=== PATIENT | male | born 1945 | race Caucasian/White ===

== ENCOUNTER 2017-01-14 00:28 | Inpatient (IN) | payer MEDICARE, MEDICAID ==
[~2017-01-14] VITALS: Ht 185.4 cm; Wt 82.7 kg
[~2017-01-14 00:28] MED LIST: ACET-2247 PO; ADV250 IH; ARIP10TA14 PO; AUD NEB; BACL10TA PO; BENA20 PO; CEFX1I IV; DICY20 PO; FINA5TAB41 PO; GABA-529 PO; HEP5KI SQ; IPRNEB NEB; LORA10TA7 PO; PANT40TA25 PO; PARO20TA24 PO; PRED20 PO; PROPYLTHIOURACIL PO; TAMS0.4C32 PO
[2017-01-14 01:21] LABS: BASOPHILS # (AUTO) 0.04 K/uL (0.00-0.20); BASOPHILS % (AUTO) 0.5 % (0.0-2.0); EOSINOPHILS # (AUTO) 0.77 K/uL (0.00-0.70); EOSINOPHILS % (AUTO) 10.09 % (1.0-6.0); HEMATOCRIT 39.9 % (41-53); HEMOGLOBIN 13.4 g/dL (13.5-17.5); LYMPHOCYTES # (AUTO) 1.9 K/uL (1.0-4.8); LYMPHOCYTES % (AUTO) 25.3 % (22.0-44.0); MEAN CORPUSCULAR HEMOGLOBIN 30.8 pg (26.0-34.0); MEAN CORPUSCULAR HGB CONC 33.5 G/dL (31.0-37.0); MEAN CORPUSCULAR VOLUME 92 fL (80-100); MONOCYTES # (AUTO) 0.5 K/uL (0.1-1.0); MONOCYTES % (AUTO) 6.9 % (2.0-9.0); NEUTROPHILS # (AUTO) 4.4 K/uL (1.8-7.7); NEUTROPHILS % (AUTO) 57.2 % (40.0-70.0); PLATELET COUNT (AUTO) 202 K/uL (150-450); RED BLOOD CELL COUNT(AUTO) 4.34 MIL/uL (4.50-5.90); RED CELL DISTRIBUTION WIDTH 14.6 % (11.5-14.5); WHITE BLOOD COUNT (AUTO) 7.6 K/uL (4.5-11.0)
[2017-01-14 01:31] LABS: ANION GAP 11 mmol/L (8-16); CALCIUM, TOTAL 8.5 mg/dL (8.8-10.5); CARBON DIOXIDE 24 mmol/L (22-29); CHLORIDE 109 mmol/L (98-107); CREATININE 1.86 mg/dL (0.60-1.30); GLOMERULAR FILTR. RATE CALC 36 mL/min (>60); POTASSIUM 3.8 mmol/L (3.5-5.1); SODIUM SERUM 144 mmol/L (136-145); UREA NITROGEN, BLOOD 22 mg/dL (7-18)
[2017-01-14 01:35] LABS: ALANINE AMINOTRANSFERASE 21 U/L (12-78); ALBUMIN 3.5 g/dL (3.4-5.0); ASPARTATE AMINOTRANSFERASE 11 U/L (15-37); BILIRUBIN,TOTAL 0.4 mg/dL (0.1-1.0); TOTAL PROTEIN, SERUM 6.5 g/dL (6.4-8.2)
[2017-01-14] MEDS ORDERED: ACETAMINOPHEN 325 MG TABLET PO ONE (01:45)
[2017-01-14] MEDS ORDERED: LACT1CAP62 PO (02:05)
[2017-01-14] MEDS ORDERED: IBUP-1547 PO (02:05)
[2017-01-14] MEDS ORDERED: IBUPROFEN 800 MG TABLET PO ONE (02:30)
[2017-01-14] MEDS ORDERED: ONDANSETRON HCL 4 MG/2 ML VIAL IVP PRN ×2 (04:30→06:30)
[2017-01-14] MEDS ORDERED: 0.9% SODIUM CHLORIDE 10 ML SYRINGE IVP PRN (04:30)
[2017-01-14] MEDS ORDERED: ACETAMINOPHEN 325 MG TABLET PO PRN (04:30)
[2017-01-14] MEDS ORDERED: MAGNESIUM HYDROXIDE SUSPENSION 30 ML UDCUP PO PRN (06:30)
[2017-01-14] MEDS ORDERED: ZOLPIDEM TARTRATE 5 MG TABLET PO PRN (06:30)
[2017-01-14] MEDS ORDERED: IBUPROFEN 800 MG TABLET PO PRN (06:30)
[2017-01-14] MEDS ORDERED: ALBUTEROL SULFATE 2.5 MG/0.5 ML NEB SOLUTION NEB PRN (06:30)
[2017-01-14] MEDS ORDERED: IPRATROPIUM BROMIDE 0.5 MG/2.5 ML NEB SOLUTION NEB PRN (06:30)
[2017-01-14] MEDS ORDERED: BISACODYL 10 MG RECTAL RECTAL SUPPOSITORY PR PRN (06:30)
[2017-01-14 09:09] VITALS: BP 105/56
[2017-01-14] MEDS: HEPARIN SODIUM,PORCINE 5,000 UNITS/ML VIAL SQ SCH ×2 (10:30→20:07)
[2017-01-14] MEDS: PANTOPRAZOLE SODIUM 40 MG DR TABLET PO SCH (10:30)
[2017-01-14] MEDS: TAMSULOSIN HCL 0.4 MG CAPSULE PO SCH (10:30)
[2017-01-14] MEDS: ARIPiprazole 10 MG TABLET PO SCH (10:30)
[2017-01-14] MEDS: FINASTERIDE 5 MG TABLET PO SCH (11:39)
[2017-01-14 13:06] VITALS: BP 118/82
[2017-01-14 16:30] VITALS: BP 115/79
[2017-01-14 20:18] VITALS: BP 118/73
[2017-01-15] VITALS (7 sets, daily range): BP systolic 114–123; BP diastolic 64–77
[2017-01-15 05:43] LABS: BASOPHILS % (AUTO) 0.6 % (0.0-2.0); EOSINOPHILS % (AUTO) 12.5 % (1.0-6.0); HEMATOCRIT 40.7 % (41-53); HEMOGLOBIN 14.1 g/dL (13.5-17.5); LYMPHOCYTES # (AUTO) 1.9 K/uL (1.0-4.8); LYMPHOCYTES % (AUTO) 26.2 % (22.0-44.0); MEAN CORPUSCULAR HEMOGLOBIN 31.6 pg (26.0-34.0); MEAN CORPUSCULAR HGB CONC 34.7 G/dL (31.0-37.0); MEAN CORPUSCULAR VOLUME 91 fL (80-100); MONOCYTES # (AUTO) 0.5 K/uL (0.1-1.0); MONOCYTES % (AUTO) 7.1 % (2.0-9.0); NEUTROPHILS # (AUTO) 3.9 K/uL (1.8-7.7); NEUTROPHILS % (AUTO) 53.6 % (40.0-70.0); PLATELET COUNT (AUTO) 210 K/uL (150-450); RED BLOOD CELL COUNT(AUTO) 4.47 MIL/uL (4.50-5.90); RED CELL DISTRIBUTION WIDTH 14.4 % (11.5-14.5); WHITE BLOOD COUNT (AUTO) 7.3 K/uL (4.5-11.0)
[2017-01-15 06:19] LABS: CALCIUM, TOTAL 8.5 mg/dL (8.8-10.5); CHOL/HDL RATIO 6.1 (4.2-7.3); CREATININE 2.03 mg/dL (0.60-1.30); MAGNESIUM 1.8 mg/dL (1.80-2.40); THYROID STIMULATING HORMONE 1.5 uIU/mL (0.36-3.74)
[2017-01-15 07:01] LABS: HEMOGLOBIN A1C 4.5 % (4.5-6.2)
[2017-01-15] MEDS: FINASTERIDE 5 MG TABLET PO SCH (08:28)
[2017-01-15] MEDS: ARIPiprazole 10 MG TABLET PO SCH (08:28)
[2017-01-15] MEDS: TAMSULOSIN HCL 0.4 MG CAPSULE PO SCH (08:28)
[2017-01-15] MEDS: PANTOPRAZOLE SODIUM 40 MG DR TABLET PO SCH (08:28)
[2017-01-15] MEDS: HEPARIN SODIUM,PORCINE 5,000 UNITS/ML VIAL SQ SCH ×2 (08:29→22:55)
[2017-01-15] MEDS: RINGERS SOLUTION,LACTATED 1,000 ML IV SCH (16:43)
[2017-01-15 19:53] LABS: APPEARANCE,URINE CLOUDY (CLEAR); GLUCOSE, URINE (UA) NEGATIVE (NEGATIVE); KETONES,URINE NEGATIVE (NEGATIVE); LEUKOCYTE ESTERASE ,URINE LARGE (NEGATIVE); OCCULT BLOOD,URINE LARGE (NEGATIVE); PH,URINE 5.5 (5.0-8.0); PROTEIN,URINE TRACE (NEGATIVE)
[2017-01-15 20:05] LABS: WBC,URINE >100 /HPF (0-5)
[2017-01-15] MEDS ORDERED: ACETAMINOPHEN 325 MG TABLET PO PRN (20:45)
[2017-01-15] MEDS: MUPIROCIN CALCIUM 2% 22 GM OINTMENT NASAL SCH (22:55)
[2017-01-16 08:10] VITALS: BP 124/84
[2017-01-16] MEDS: MUPIROCIN CALCIUM 2% 22 GM OINTMENT NASAL SCH ×2 (08:15→20:00)
[2017-01-16] MEDS: ARIPiprazole 10 MG TABLET PO SCH (08:15)
[2017-01-16] MEDS: HEPARIN SODIUM,PORCINE 5,000 UNITS/ML VIAL SQ SCH ×2 (08:15→20:00)
[2017-01-16] MEDS: CefTRIAXone 1 GM/DEXTROSE 50 ML IV SCH (08:15)
[2017-01-16] MEDS: TAMSULOSIN HCL 0.4 MG CAPSULE PO SCH (08:15)
[2017-01-16] MEDS: FINASTERIDE 5 MG TABLET PO SCH (08:15)
[2017-01-16] MEDS: PANTOPRAZOLE SODIUM 40 MG DR TABLET PO SCH (08:15)
[2017-01-16] MEDS: RINGERS SOLUTION,LACTATED 1,000 ML IV SCH ×2 (11:57→23:38)
[2017-01-16 13:02] VITALS: BP 135/77
[2017-01-16 16:32] VITALS: BP 131/72
[2017-01-16 20:00] VITALS: BP 123/73
[2017-01-17] VITALS: BP 134/81
[2017-01-17 05:00] VITALS: BP 124/74
[2017-01-17 07:17] VITALS: BP 131/65
[2017-01-17] MEDS: CefTRIAXone 1 GM/DEXTROSE 50 ML IV SCH (07:55)
[2017-01-17] MEDS: PANTOPRAZOLE SODIUM 40 MG DR TABLET PO SCH (07:55)
[2017-01-17] MEDS: ARIPiprazole 10 MG TABLET PO SCH (07:55)
[2017-01-17] MEDS: TAMSULOSIN HCL 0.4 MG CAPSULE PO SCH (07:55)
[2017-01-17] MEDS: HEPARIN SODIUM,PORCINE 5,000 UNITS/ML VIAL SQ SCH ×2 (07:56→20:39)
[2017-01-17] MEDS: FINASTERIDE 5 MG TABLET PO SCH (07:56)
[2017-01-17] MEDS: MUPIROCIN CALCIUM 2% 22 GM OINTMENT NASAL SCH ×2 (07:56→20:38)
[2017-01-17] MEDS: BACLOFEN 10 MG TABLET PO SCH ×3 (09:59→20:39)
[2017-01-17 10:41] LABS: CALCIUM, TOTAL 8.3 mg/dL (8.8-10.5); CREATININE 1.89 mg/dL (0.60-1.30); POTASSIUM 3.7 mmol/L (3.5-5.1)
[2017-01-17 11:30] VITALS: BP 119/73
[2017-01-17 15:49] VITALS: BP 139/77
[2017-01-17] MEDS ORDERED: SODIUM CHLORIDE 0.9% 500 ML IV ONE (18:22)
[2017-01-17 20:16] VITALS: BP 121/69
[2017-01-18 00:46] VITALS: BP 123/72
[2017-01-18 06:16] VITALS: BP 131/74
[2017-01-18 07:19] VITALS: BP 127/82
[2017-01-18] MEDS: CefTRIAXone 1 GM/DEXTROSE 50 ML IV SCH (08:34)
[2017-01-18 08:45] LABS: CALCIUM, TOTAL 8.8 mg/dL (8.8-10.5); CREATININE 1.74 mg/dL (0.60-1.30)
[2017-01-18] MEDS: FINASTERIDE 5 MG TABLET PO SCH (08:58)
[2017-01-18] MEDS: BACLOFEN 10 MG TABLET PO SCH ×2 (08:58→16:22)
[2017-01-18] MEDS: HEPARIN SODIUM,PORCINE 5,000 UNITS/ML VIAL SQ SCH (08:59)
[2017-01-18] MEDS: MUPIROCIN CALCIUM 2% 22 GM OINTMENT NASAL SCH (08:59)
[2017-01-18] MEDS: TAMSULOSIN HCL 0.4 MG CAPSULE PO SCH (08:59)
[2017-01-18] MEDS: ARIPiprazole 10 MG TABLET PO SCH (08:59)
[2017-01-18] MEDS: PANTOPRAZOLE SODIUM 40 MG DR TABLET PO SCH (08:59)
[2017-01-18] MEDS ORDERED: LACTULOSE 20 GM/30 ML SOLUTION UDCUP PO SCH (09:15)
[2017-01-18 15:28] VITALS: BP 124/73
[2017-01-20 05:12] LABS: ALPHA-1 URINE (ELP) 1.8 %; ALPHA-2 URINE(ELP) 10.1 %; BETA URINE(ELP) 16.3 %; GAMMA URINE(ELP) 24.1 %; TOTAL PROTEIN URINE 24.5 mg/dL (Not Estab.)
== END 2017-01-18 17:10 | DRG 682 ==
LOC: EMS 00:31 → 6N 04:30
PROVIDERS: ADMIT Internal Medicine Geriatric Medicine; ATTEND Internal Medicine Geriatric Medicine
DX: N17.9 Acute kidney failure, unspecified (principal); G93.40 Encephalopathy, unspecified; N39.0 Urinary tract infection, site not specified; D64.9 Anemia, unspecified; R33.9 Retention of urine, unspecified; F32.9 Major depressive disorder, single episode, unspecified; Z88.5 Allergy status to narcotic agent; Z88.8 Allergy status to other drugs, medicaments and biological substances; F25.9 Schizoaffective disorder, unspecified; G89.4 Chronic pain syndrome; I12.9 Hypertensive chronic kidney disease with stage 1 through stage 4 chronic kidney disease, or unspecified chronic kidney disease; I25.10 Atherosclerotic heart disease of native coronary artery without angina pectoris; M19.90 Unspecified osteoarthritis, unspecified site; M79.7 Fibromyalgia; M94.0 Chondrocostal junction syndrome [Tietze]; N40.1 Benign prostatic hyperplasia with lower urinary tract symptoms; B95.62 Methicillin resistant Staphylococcus aureus infection as the cause of diseases classified elsewhere; N18.3 Chronic kidney disease, stage 3 (moderate); G62.9 Polyneuropathy, unspecified; J44.9 Chronic obstructive pulmonary disease, unspecified; E78.2 Mixed hyperlipidemia; B96.1 Klebsiella pneumoniae [K. pneumoniae] as the cause of diseases classified elsewhere
CPT/HCPCS: 76770; 82306; 82570; 82607; 82746; 83036; 83735; 84156; 84166; 84300; 84439; 84443; 86592; 87081; 87086; 97161; 99285; G0480; J0696; J1644; J7040; J7120

== ENCOUNTER 2017-03-04 18:19 | Inpatient (IN) | payer MEDICARE, OTHER ==
[~2017-03-04] VITALS: Ht 185.4 cm; Wt 86.9 kg
[~2017-03-04 18:19] MED LIST changes: -ACET-2247 PO; -ADV250 IH; -BACL10TA PO; -BENA20 PO; -CEFX1I IV; -DICY20 PO; -GABA-529 PO; -HEP5KI SQ; +IBUP-1547 PO; +LACT1CAP62 PO; -LORA10TA7 PO; -PANT40TA25 PO; -PARO20TA24 PO; -PRED20 PO; -PROPYLTHIOURACIL PO
[2017-03-04 18:38] LABS: GLUCOSE,POINT OF CARE 174 MG/DL (70-110)
[2017-03-04] MEDS ORDERED: ACETAMINOPHEN 650 MG RECTAL SUPPOSITORY PR ONE (19:00)
[2017-03-04] MEDS ORDERED: SODIUM CHLORIDE 0.9% 1,000 ML IV ONE ×3 (19:00→23:15)
[2017-03-04] MEDS ORDERED: 0.9% SODIUM CHLORIDE 10 ML SYRINGE IVP PRN (19:00)
[2017-03-04 19:19] LABS: BASOPHILS % (AUTO) 0.1 % (0.0-2.0); EOSINOPHILS % (AUTO) 0.1 % (1.0-6.0); HEMATOCRIT 43.7 % (41-53); LYMPHOCYTES # (AUTO) 0.8 K/uL (1.0-4.8); LYMPHOCYTES % (AUTO) 3.5 % (22.0-44.0); MEAN CORPUSCULAR HEMOGLOBIN 31.3 pg (26.0-34.0); MEAN CORPUSCULAR HGB CONC 34.4 G/dL (31.0-37.0); MEAN CORPUSCULAR VOLUME 91 fL (80-100); MONOCYTES % (AUTO) 4.3 % (2.0-9.0); NEUTROPHILS # (AUTO) 20.3 K/uL (1.8-7.7); PLATELET COUNT (AUTO) 233 K/uL (150-450); RED CELL DISTRIBUTION WIDTH 13.4 % (11.5-14.5)
[2017-03-04 19:25] LABS: ANION GAP 15 mmol/L (8-16); CALCIUM, TOTAL 9.1 mg/dL (8.8-10.5); CARBON DIOXIDE 22 mmol/L (22-29); CHLORIDE 106 mmol/L (98-107); CREATININE 3.04 mg/dL (0.60-1.30); GLOMERULAR FILTR. RATE CALC 20 mL/min (>60); POTASSIUM 3.4 mmol/L (3.5-5.1); SODIUM SERUM 143 mmol/L (136-145); UREA NITROGEN, BLOOD 28 mg/dL (7-18)
[2017-03-04 19:31] LABS: ALANINE AMINOTRANSFERASE 13 U/L (12-78); ALBUMIN 3.4 g/dL (3.4-5.0); ASPARTATE AMINOTRANSFERASE 10 U/L (15-37); BILIRUBIN,TOTAL 1.5 mg/dL (0.1-1.0); CREATINE KINASE, TOTAL 47 U/L (39-308); INR 1.1 (0.9-1.1); PROTHROMBIN TIME 11.3 SEC (9.4-11.6)
[2017-03-04 19:32] LABS: AMMONIA 58 umol/L (11-32)
[2017-03-04 19:33] LABS: LACTIC ACID 1.5 mmol/L (0.4-2.0)
[2017-03-04 19:34] LABS: RBC MORPHOLOGY COMMENT NORMAL RBC MORPH; TROPONIN I < 0.02 ng/mL (0.00-0.05)
[2017-03-04 19:37] LABS: B-TYPE NATRIURETIC PEPTIDE 62 pg/mL (0-100)
[2017-03-04 20:12] LABS: PROCALCITONIN (PCT) 0.74 ng/mL (<0.50)
[2017-03-04] MEDS ORDERED: IBUPROFEN 600 MG TABLET PO ONE (20:15)
[2017-03-04] MEDS ORDERED: PIPERACILLIN/TAZO 3.375 GM/D5W 50 ML IV ONE (22:15)
[2017-03-04] MEDS ORDERED: VANCOMYCIN HCL 1 GM/D5% WATER 200 ML IV ONE (22:30)
[2017-03-04 23:19] LABS: APPEARANCE,URINE TURBID (CLEAR); GLUCOSE, URINE (UA) NEGATIVE (NEGATIVE); KETONES,URINE TRACE mg/dL (NEGATIVE); LEUKOCYTE ESTERASE ,URINE LARGE (NEGATIVE); OCCULT BLOOD,URINE LARGE (NEGATIVE); PH,URINE 8.5 (5.0-8.0); PROTEIN,URINE SEE CONFIRM (NEGATIVE)
[2017-03-04 23:21] LABS: ADD UA MICROSCOPIC YES
[2017-03-04 23:22] LABS: SULFOSALICYLIC ACID,URINE 2+ (Negative)
[2017-03-04 23:24] LABS: AMORPHOUS SEDIMENT,UR Few /LPF (None Seen); TRIPLE PHOSPHATE CRYSTAL,UR Moderate /LPF (None Seen)
[2017-03-04 23:25] LABS: RBC,URINE 51-100 /HPF (0-2); WBC,URINE 51-100 /HPF (0-5)
[2017-03-04 23:26] LABS: SQUAMOUS EPITHELIAL CELL,UR Few /LPF (None Seen)
[2017-03-05] VITALS (7 sets, daily range): BP systolic 102–125; BP diastolic 53–77
[2017-03-05] MEDS ORDERED: LACTULOSE 20 GM/30 ML SOLUTION UDCUP PO ONE
[2017-03-05] MEDS ORDERED: 0.9% SODIUM CHLORIDE 10 ML SYRINGE IVP PRN (02:30)
[2017-03-05] MEDS ORDERED: ONDANSETRON HCL 4 MG/2 ML VIAL IVP PRN ×2 (02:30→11:00)
[2017-03-05] MEDS ORDERED: SODIUM CHLORIDE 0.9% 250 ML IV ONE (07:45)
[2017-03-05] MEDS ORDERED: BISACODYL 10 MG RECTAL RECTAL SUPPOSITORY PR PRN (11:00)
[2017-03-05] MEDS ORDERED: ZOLPIDEM TARTRATE 5 MG TABLET PO PRN (11:00)
[2017-03-05] MEDS ORDERED: MAGNESIUM HYDROXIDE SUSPENSION 30 ML UDCUP PO PRN (11:00)
[2017-03-05] MEDS ORDERED: IPRATROPIUM BROMIDE 0.5 MG/2.5 ML NEB SOLUTION NEB PRN (11:00)
[2017-03-05] MEDS ORDERED: ALBUTEROL SULFATE 2.5 MG/0.5 ML NEB SOLUTION NEB PRN (11:00)
[2017-03-05] MEDS ORDERED: VANCOMYCIN HCL 1 GM/D5% WATER 200 ML IV PRN (11:30)
[2017-03-05] MEDS ORDERED: VANCOMYCIN HCL 1 GM/D5% WATER 200 ML IV ONE (12:30)
[2017-03-05] MEDS ORDERED: SODIUM CHLORIDE 0.9% 500 ML IV ONE (13:26)
[2017-03-05] MEDS: HEPARIN SODIUM,PORCINE 5,000 UNITS/ML VIAL SQ SCH ×2 (13:27→20:35)
[2017-03-05] MEDS: PIPERACILLIN SODIUM/TAZOBACTAM 2.25 GM in DEXTROSE 5%-WATER 50 ML IV SCH ×3 (13:30→23:31)
[2017-03-05] MEDS: RINGERS SOLUTION,LACTATED 1,000 ML IV SCH (13:31)
[2017-03-05] MEDS: IBUPROFEN 200 MG TABLET PO PRN ×2 (16:48→23:34)
[2017-03-05] MEDS: OXYGEN THERAPY IH SCH (20:35)
[2017-03-06] MEDS: RINGERS SOLUTION,LACTATED 1,000 ML IV SCH ×2 (05:08→18:38)
[2017-03-06] MEDS: PIPERACILLIN SODIUM/TAZOBACTAM 2.25 GM in DEXTROSE 5%-WATER 50 ML IV SCH ×3 (05:08→17:11)
[2017-03-06 05:48] VITALS: BP 96/48
[2017-03-06 06:01] LABS: BASOPHILS % (AUTO) 0.3 % (0.0-2.0); EOSINOPHILS % (AUTO) 2.5 % (1.0-6.0); HEMATOCRIT 31.7 % (41-53); HEMOGLOBIN 10.9 g/dL (13.5-17.5); LYMPHOCYTES # (AUTO) 0.9 K/uL (1.0-4.8); LYMPHOCYTES % (AUTO) 11.1 % (22.0-44.0); MEAN CORPUSCULAR HEMOGLOBIN 31.6 pg (26.0-34.0); MEAN CORPUSCULAR HGB CONC 34.3 G/dL (31.0-37.0); MEAN CORPUSCULAR VOLUME 92 fL (80-100); MONOCYTES # (AUTO) 0.6 K/uL (0.1-1.0); MONOCYTES % (AUTO) 7.5 % (2.0-9.0); NEUTROPHILS # (AUTO) 6.5 K/uL (1.8-7.7); NEUTROPHILS % (AUTO) 78.6 % (40.0-70.0); PLATELET COUNT (AUTO) 154 K/uL (150-450); RED BLOOD CELL COUNT(AUTO) 3.44 MIL/uL (4.50-5.90); RED CELL DISTRIBUTION WIDTH 13.4 % (11.5-14.5); WHITE BLOOD COUNT (AUTO) 8.2 K/uL (4.5-11.0)
[2017-03-06 06:32] LABS: CALCIUM, TOTAL 7.9 mg/dL (8.8-10.5); CREATININE 2.33 mg/dL (0.60-1.30); MAGNESIUM 1.8 mg/dL (1.80-2.40); POTASSIUM 3.1 mmol/L (3.5-5.1); THYROID STIMULATING HORMONE 12.18 uIU/mL (0.36-3.74)
[2017-03-06 07:02] LABS: HEMOGLOBIN A1C 5.1 % (4.5-6.2)
[2017-03-06] MEDS ORDERED: VANCOMYCIN HCL 1 GM/D5% WATER 200 ML IV SCH (08:00)
[2017-03-06 08:21] VITALS: BP 102/59
[2017-03-06] MEDS: PANTOPRAZOLE SODIUM 40 MG/VIAL IVP SCH (08:23)
[2017-03-06] MEDS: TAMSULOSIN HCL 0.4 MG CAPSULE PO SCH (08:23)
[2017-03-06] MEDS: OXYGEN THERAPY IH SCH (08:23)
[2017-03-06] MEDS: ARIPiprazole 10 MG TABLET PO SCH ×2 (08:23→08:30)
[2017-03-06] MEDS: FINASTERIDE 5 MG TABLET PO SCH (08:23)
[2017-03-06] MEDS: HEPARIN SODIUM,PORCINE 5,000 UNITS/ML VIAL SQ SCH ×2 (08:24→20:35)
[2017-03-06] MEDS ORDERED: POTASSIUM CHLORIDE 20 MEQ ER TABLET PO ONE ×2 (09:00)
[2017-03-06 11:58] VITALS: BP 142/85
[2017-03-06] MEDS ORDERED: MORPHINE SULFATE 2 MG/ML SYRINGE IVP PRN ×2 (14:30)
[2017-03-06 15:37] VITALS: BP 111/72
[2017-03-06 19:23] VITALS: BP 117/73
[2017-03-06 23:55] VITALS: BP 118/71
[2017-03-07] MEDS: PIPERACILLIN SODIUM/TAZOBACTAM 2.25 GM in DEXTROSE 5%-WATER 50 ML IV SCH ×2 (00:01→06:00)
[2017-03-07 04:42] VITALS: BP 130/72
[2017-03-07 06:21] LABS: BASOPHILS % (AUTO) 0.5 % (0.0-2.0); EOSINOPHILS % (AUTO) 3.2 % (1.0-6.0); HEMATOCRIT 32.2 % (41-53); LYMPHOCYTES # (AUTO) 0.9 K/uL (1.0-4.8); LYMPHOCYTES % (AUTO) 13.6 % (22.0-44.0); MEAN CORPUSCULAR HEMOGLOBIN 31.5 pg (26.0-34.0); MEAN CORPUSCULAR HGB CONC 34.2 G/dL (31.0-37.0); MEAN CORPUSCULAR VOLUME 92 fL (80-100); MONOCYTES # (AUTO) 0.6 K/uL (0.1-1.0); MONOCYTES % (AUTO) 8.2 % (2.0-9.0); NEUTROPHILS # (AUTO) 5.1 K/uL (1.8-7.7); NEUTROPHILS % (AUTO) 74.5 % (40.0-70.0); PLATELET COUNT (AUTO) 171 K/uL (150-450); RED CELL DISTRIBUTION WIDTH 13.2 % (11.5-14.5); WHITE BLOOD COUNT (AUTO) 6.9 K/uL (4.5-11.0)
[2017-03-07 06:35] LABS: CALCIUM, TOTAL 8.1 mg/dL (8.8-10.5); CREATININE 1.85 mg/dL (0.60-1.30); MAGNESIUM 1.7 mg/dL (1.80-2.40); PHOSPHORUS 2.3 mg/dL (2.5-4.9); POTASSIUM 3.3 mmol/L (3.5-5.1)
[2017-03-07 07:31] VITALS: BP 118/68
[2017-03-07] MEDS ORDERED: MAGNESIUM SULFATE 1 GM in DEXTROSE 5%-WATER 50 ML IV ONE (09:00)
[2017-03-07] MEDS ORDERED: POTASSIUM PHOS/SODIUM PHOS MIXTURE 1 POWDER PACKET PO ONE (09:00)
[2017-03-07] MEDS ORDERED: POTASSIUM CHLORIDE 20 MEQ ER TABLET PO ONE (09:00)
[2017-03-07] MEDS: OXYGEN THERAPY IH SCH ×3 (09:08→20:22)
[2017-03-07] MEDS: FINASTERIDE 5 MG TABLET PO SCH (09:11)
[2017-03-07] MEDS: TAMSULOSIN HCL 0.4 MG CAPSULE PO SCH (09:11)
[2017-03-07] MEDS: PANTOPRAZOLE SODIUM 40 MG/VIAL IVP SCH (09:11)
[2017-03-07] MEDS: RINGERS SOLUTION,LACTATED 1,000 ML IV SCH (09:11)
[2017-03-07] MEDS: HEPARIN SODIUM,PORCINE 5,000 UNITS/ML VIAL SQ SCH ×2 (09:13→20:23)
[2017-03-07] MEDS ORDERED: MAGNESIUM SULFATE 4 GM/WATER 100 ML IV PRN (11:15)
[2017-03-07] MEDS ORDERED: MAGNESIUM OXIDE 400 MG TABLET PO PRN (11:15)
[2017-03-07] MEDS ORDERED: MAGNESIUM SULFATE 2 GM in DEXTROSE 5%-WATER 50 ML IV PRN (11:15)
[2017-03-07 11:32] LABS: ALBUMIN 2.2 g/dL (3.4-5.0)
[2017-03-07 11:45] VITALS: BP 155/73
[2017-03-07] MEDS: PIPERACILLIN/TAZO 3.375 GM/D5W 50 ML IV SCH ×3 (12:06→23:06)
[2017-03-07] MEDS: BACLOFEN 10 MG TABLET PO PRN ×2 (12:33→20:23)
[2017-03-07 16:17] VITALS: BP 127/74
[2017-03-07 19:35] VITALS: BP 104/64
[2017-03-07 23:20] VITALS: BP 109/60
[2017-03-08] MEDS: RINGERS SOLUTION,LACTATED 1,000 ML IV SCH (02:33)
[2017-03-08 04:30] VITALS: BP 112/62
[2017-03-08] MEDS: PIPERACILLIN/TAZO 3.375 GM/D5W 50 ML IV SCH (05:09)
[2017-03-08 07:47] LABS: BASOPHILS % (AUTO) 0.4 % (0.0-2.0); EOSINOPHILS % (AUTO) 4.8 % (1.0-6.0); HEMATOCRIT 33.1 % (41-53); HEMOGLOBIN 11.5 g/dL (13.5-17.5); LYMPHOCYTES # (AUTO) 0.9 K/uL (1.0-4.8); MEAN CORPUSCULAR HEMOGLOBIN 31.7 pg (26.0-34.0); MEAN CORPUSCULAR HGB CONC 34.9 G/dL (31.0-37.0); MEAN CORPUSCULAR VOLUME 91 fL (80-100); MONOCYTES # (AUTO) 0.5 K/uL (0.1-1.0); MONOCYTES % (AUTO) 8.3 % (2.0-9.0); NEUTROPHILS % (AUTO) 70.5 % (40.0-70.0); PLATELET COUNT (AUTO) 167 K/uL (150-450); RED BLOOD CELL COUNT(AUTO) 3.64 MIL/uL (4.50-5.90); WHITE BLOOD COUNT (AUTO) 5.7 K/uL (4.5-11.0)
[2017-03-08 08:03] LABS: CALCIUM, TOTAL 8.2 mg/dL (8.8-10.5); CREATININE 1.87 mg/dL (0.60-1.30); MAGNESIUM 1.8 mg/dL (1.80-2.40); POTASSIUM 3.4 mmol/L (3.5-5.1)
[2017-03-08 09:10] VITALS: BP 113/71
[2017-03-08] MEDS: TAMSULOSIN HCL 0.4 MG CAPSULE PO SCH (09:13)
[2017-03-08] MEDS: FINASTERIDE 5 MG TABLET PO SCH (09:13)
[2017-03-08] MEDS: OXYGEN THERAPY IH SCH (09:13)
[2017-03-08] MEDS: PANTOPRAZOLE SODIUM 40 MG/VIAL IVP SCH (09:13)
[2017-03-08] MEDS: HEPARIN SODIUM,PORCINE 5,000 UNITS/ML VIAL SQ SCH (09:13)
[2017-03-08] MEDS: BACLOFEN 10 MG TABLET PO PRN (09:19)
[2017-03-08] MEDS ORDERED: POTASSIUM CHLORIDE 20 MEQ ER TABLET PO ONE (10:00)
[2017-03-08] MEDS ORDERED: LEVOFLOXACIN 250 MG TABLET PO SCH (11:00)
[2017-03-08 11:23] VITALS: BP 142/79
[2017-03-08] MEDS ORDERED: LEVO25VI4 IV (15:06)
[2017-03-08] MEDS ORDERED: PANT40TA25 PO (15:07)
[2017-03-08] MEDS ORDERED: BISA10S PR (15:27)
[2017-03-08] MEDS ORDERED: BACL10TA PO (15:27)
[2017-03-08] MEDS ORDERED: IPRNEB IH (15:27)
[2017-03-08] MEDS ORDERED: MOM30 PO (15:28)
[2017-03-08] MEDS ORDERED: ZOLP5 PO (15:29)
[2017-03-08] MEDS ORDERED: LEVO25TA9 PO (15:31)
[2017-03-08 16:28] VITALS: BP 146/81
== END 2017-03-08 18:55 | DRG 871 ==
LOC: EMS 18:21 → 5S 23:45
PROVIDERS: ADMIT Internal Medicine Geriatric Medicine; ATTEND Internal Medicine Geriatric Medicine
DX: A41.9 Sepsis, unspecified organism (principal); G93.40 Encephalopathy, unspecified; N17.9 Acute kidney failure, unspecified; N39.0 Urinary tract infection, site not specified; N13.30 Unspecified hydronephrosis; N18.3 Chronic kidney disease, stage 3 (moderate); N40.0 Benign prostatic hyperplasia without lower urinary tract symptoms; D64.9 Anemia, unspecified; E03.9 Hypothyroidism, unspecified; E78.5 Hyperlipidemia, unspecified; E83.39 Other disorders of phosphorus metabolism; E83.42 Hypomagnesemia; E86.9 Volume depletion, unspecified; E87.6 Hypokalemia; F20.9 Schizophrenia, unspecified; F31.9 Bipolar disorder, unspecified; G89.4 Chronic pain syndrome; B96.1 Klebsiella pneumoniae [K. pneumoniae] as the cause of diseases classified elsewhere; M62.81 Muscle weakness (generalized); I12.9 Hypertensive chronic kidney disease with stage 1 through stage 4 chronic kidney disease, or unspecified chronic kidney disease; I25.10 Atherosclerotic heart disease of native coronary artery without angina pectoris; K40.20 Bilateral inguinal hernia, without obstruction or gangrene, not specified as recurrent; M19.90 Unspecified osteoarthritis, unspecified site; M94.0 Chondrocostal junction syndrome [Tietze]; N18.2 Chronic kidney disease, stage 2 (mild); M79.7 Fibromyalgia; J44.9 Chronic obstructive pulmonary disease, unspecified; G62.9 Polyneuropathy, unspecified; Z91.19 Patient's noncompliance with other medical treatment and regimen; Z88.5 Allergy status to narcotic agent; Z88.6 Allergy status to analgesic agent; Z79.899 Other long term (current) drug therapy; Z88.8 Allergy status to other drugs, medicaments and biological substances
CPT/HCPCS: 70450; 74176; 76770; 82306; 82607; 82746; 82962; 83036; 83605; 83735; 84100; 84132; 84145; 84439; 84443; 87040; 87086; 92610; 93005; 96361; 96365; 96366; 96375; 99285; C9113; J1644; J2270; J2543; J3370; J3475; J7030; J7040; J7050; J7060; J7120

== ENCOUNTER 2018-02-23 09:37 | Day surgery (SDC) | payer MEDICARE, OTHER ==
[~2018-02-23] VITALS: Ht 185.4 cm; Wt 77.3 kg
[~2018-02-23 09:37] MED LIST changes: +ACET-784 PO; -ARIP10TA14 PO; +ARIP10TA8 PO; +ASPI81 PO; +ATOR40TA28 PO; -AUD NEB; +BACL10TA PO; +BENZ1LOZ68 PO; +BISA10S PR; +CILO2.5OS OS; +CIP250 PO; +CRAN500C3 PO; +DULO30CA2 PO; +FE RC; -FINA5TAB41 PO; -IBUP-1547 PO; +IPRA3AMP24 NEB; -IPRNEB NEB; +ISOS30TA6 PO; +LACT1CAP38 PO; -LACT1CAP62 PO; +LEVO75 PO; +LISI-660 PO; +MELA5TAB12 PO; +METO50 PO; +MOM30 PO; +MULT-248 PO; +ONDA4 PO; +PANT40TA25 PO; +PREDAOS OS; +TICA90TA PO; +VITAD1000 PO
[2018-02-23] MEDS ORDERED: TETRACAINE HCL VISCOUS 0.5% 0.6 ML OPHTHALMIC SOLUTION OS ONE (09:38)
[2018-02-23] MEDS ORDERED: HYALURONATE SODIUM 12 MG/ML 0.8 ML SYRINGE IO ONE (09:38)
[2018-02-23] MEDS ORDERED: HYALURONATE SOD/CHONDROITIN SOD 0.5 ML VIAL IO ONE (09:38)
[2018-02-23] MEDS ORDERED: DEXAMETHASONE SOD PHOS 4 MG/ML VIAL IVP ONE (09:38)
[2018-02-23] MEDS ORDERED: POVIDONE-IODINE 10% 15 ML SOLUTION UD TP ONE (09:38)
[2018-02-23] MEDS ORDERED: FentaNYL CITRATE-PF 100 MCG/2 ML VIAL IVP ONE (09:38)
[2018-02-23] MEDS ORDERED: LIDOCAINE HCL/PF 1% 2 ML VIAL IM ONE (09:38)
[2018-02-23] MEDS ORDERED: MIDAZOLAM HCL 2 MG/2 ML VIAL IVP ONE (09:38)
[2018-02-23] MEDS ORDERED: MOXIFLOXACIN HCL 0.5% 3 ML OPHTHALMIC SOLUTION ONE (09:39)
[2018-02-23] MEDS ORDERED: SODIUM CHLORIDE 0.9% 500 ML IV ONE ×2 (09:39→10:00)
[2018-02-23] MEDS ORDERED: DICLOFENAC SODIUM 0.1% 2.5 ML OPHTHALMIC SOLUTION ONE (09:40)
[2018-02-23] MEDS ORDERED: TROPICAMIDE 1% 2 ML OPHTHALMIC SOLUTION ONE (09:40)
[2018-02-23] MEDS ORDERED: DICLOFENAC SODIUM 0.1% 2.5 ML OPHTHALMIC SOLUTION OS ONE (10:00)
[2018-02-23] MEDS ORDERED: MOXIFLOXACIN HCL 0.5% 3 ML OPHTHALMIC SOLUTION OS ONE (10:00)
[2018-02-23] MEDS: TROPICAMIDE 1% 2 ML OPHTHALMIC SOLUTION OS SCH ×2 (10:33→10:38)
== END 2018-02-23 14:20 | disposition home or self-care (01) ==
LOC: SURGERY 09:37
PROVIDERS: ATTEND Specialist
DX: H25.012 Cortical age-related cataract, left eye (principal); E78.5 Hyperlipidemia, unspecified; I12.9 Hypertensive chronic kidney disease with stage 1 through stage 4 chronic kidney disease, or unspecified chronic kidney disease; N18.3 Chronic kidney disease, stage 3 (moderate); F32.9 Major depressive disorder, single episode, unspecified; J44.9 Chronic obstructive pulmonary disease, unspecified; F41.8 Other specified anxiety disorders; G89.29 Other chronic pain; M79.7 Fibromyalgia; N31.8 Other neuromuscular dysfunction of bladder; K21.9 Gastro-esophageal reflux disease without esophagitis; M19.90 Unspecified osteoarthritis, unspecified site; N40.0 Benign prostatic hyperplasia without lower urinary tract symptoms; F25.8 Other schizoaffective disorders; I25.10 Atherosclerotic heart disease of native coronary artery without angina pectoris; F32.89 Other specified depressive episodes; E03.9 Hypothyroidism, unspecified; Z79.82 Long term (current) use of aspirin; Z79.2 Long term (current) use of antibiotics; Z86.73 Personal history of transient ischemic attack (TIA), and cerebral infarction without residual deficits; Z88.5 Allergy status to narcotic agent; Z88.6 Allergy status to analgesic agent; Z88.8 Allergy status to other drugs, medicaments and biological substances; Z95.5 Presence of coronary angioplasty implant and graft; Z98.41 Cataract extraction status, right eye; Z79.891 Long term (current) use of opiate analgesic; Z79.899 Other long term (current) drug therapy; Z98.890 Other specified postprocedural states
CPT/HCPCS: 66982; 93005; C1780; J7040; 65785; J1100; J2250; J3010; J3490

== ENCOUNTER 2019-02-19 18:40 | Inpatient (IN) | payer MEDICARE, MEDICAID ==
[~2019-02-19] VITALS: Ht 210.8 cm; Wt 83.5 kg
[~2019-02-19 18:40] MED LIST changes: -BISA10S PR; +BISA10SU11 PR
[2019-02-19 20:55] LABS: BASOPHILS % (AUTO) 0.8 % (0.0-2.0); EOSINOPHILS % (AUTO) 12.3 % (1.0-6.0); HEMATOCRIT 41.1 % (41-53); HEMOGLOBIN 13.7 g/dL (13.5-17.5); LYMPHOCYTES # (AUTO) 1.8 K/uL (1.0-4.8); LYMPHOCYTES % (AUTO) 23.8 % (22.0-44.0); MEAN CORPUSCULAR HEMOGLOBIN 32.1 pg (26.0-34.0); MEAN CORPUSCULAR HGB CONC 33.2 G/dL (31.0-37.0); MEAN CORPUSCULAR VOLUME 96 fL (80-100); MONOCYTES # (AUTO) 0.5 K/uL (0.1-1.0); NEUTROPHILS # (AUTO) 4.3 K/uL (1.8-7.7); NEUTROPHILS % (AUTO) 56.1 % (40.0-70.0); PLATELET COUNT (AUTO) 161 K/uL (150-450); RED BLOOD CELL COUNT(AUTO) 4.26 MIL/uL (4.50-5.90); RED CELL DISTRIBUTION WIDTH 13.8 % (11.5-14.5)
[2019-02-19 21:05] LABS: CALCIUM, TOTAL 8.4 mg/dL (8.8-10.5); CREATININE 2.06 mg/dL (0.60-1.30); POTASSIUM 4.1 mmol/L (3.5-5.1)
[2019-02-19 21:11] LABS: ALBUMIN 3.3 g/dL (3.4-5.0); BILIRUBIN,TOTAL 0.7 mg/dL (0.1-1.0); TOTAL PROTEIN, SERUM 5.6 g/dL (6.4-8.2)
[2019-02-19 21:13] LABS: APPEARANCE,URINE CLOUDY (CLEAR); BILIRUBIN,URINE NEGATIVE (NEGATIVE); GLUCOSE, URINE (UA) NEGATIVE (NEGATIVE); KETONES,URINE TRACE mg/dL (NEGATIVE); LEUKOCYTE ESTERASE ,URINE MODERATE (NEGATIVE); NITRATE,URINE POSITIVE (NEGATIVE); OCCULT BLOOD,URINE SMALL (NEGATIVE); PH,URINE 5.5 (5.0-8.0); PROTEIN,URINE TRACE (NEGATIVE)
[2019-02-19 21:27] LABS: BACTERIA,URINE Many /HPF (None Seen)
[2019-02-19 21:28] LABS: WBC,URINE 26-50 /HPF (0-5)
[2019-02-19 21:29] LABS: SQUAMOUS EPITHELIAL CELL,UR Few /LPF (None Seen)
[2019-02-19] MEDS ORDERED: CefTRIAXone 1 GM/DEXTROSE 50 ML IV ONE (22:00)
[2019-02-20] VITALS (8 sets, daily range): BP systolic 118–148; BP diastolic 70–83
[2019-02-20] MEDS: SODIUM CHLORIDE 0.9% 1,000 ML IV SCH ×2 (02:15→14:03)
[2019-02-20] MEDS ORDERED: 0.9% SODIUM CHLORIDE 10 ML SYRINGE IVP PRN ×2 (02:30→03:30)
[2019-02-20] MEDS ORDERED: ONDANSETRON HCL 4 MG/2 ML VIAL IVP PRN ×2 (02:30→03:30)
[2019-02-20] MEDS: DULoxetine HCL 30 MG CAPSULE PO SCH ×4 (02:30→19:52)
[2019-02-20] MEDS: TICAGRELOR 90 MG TABLET PO SCH ×4 (02:30→19:52)
[2019-02-20] MEDS: TAMSULOSIN HCL 0.4 MG CAPSULE PO SCH ×4 (02:30→19:52)
[2019-02-20] MEDS: DOCUSATE SODIUM 100 MG CAPSULE PO SCH ×4 (02:30→19:52)
[2019-02-20] MEDS ORDERED: FAMOTIDINE 20 MG TABLET PO SCH (03:00)
[2019-02-20] MEDS ORDERED: CefTRIAXone 1 GM/DEXTROSE 50 ML IV SCH (03:30)
[2019-02-20] MEDS: LEVOTHYROXINE SODIUM 75 MCG TABLET PO SCH (06:51)
[2019-02-20] MEDS: CIPROFLOXACIN HCL 0.3% 2.5 ML OPHTHALMIC SOLUTION OS SCH ×4 (08:04→19:53)
[2019-02-20] MEDS: ISOSORBIDE MONONITRATE 30 MG ER TABLET PO SCH ×2 (08:04→08:12)
[2019-02-20] MEDS: PrednisoLONE ACETATE 1% 5 ML OPHTHALMIC SUSPENSION OS SCH ×4 (08:04→19:53)
[2019-02-20] MEDS: LISINOPRIL 5 MG TABLET PO SCH ×2 (08:05→08:13)
[2019-02-20] MEDS: METOPROLOL TARTRATE 50 MG TABLET PO SCH ×2 (08:05→08:12)
[2019-02-20] MEDS: FAMOTIDINE 20 MG TABLET PO SCH ×2 (08:05→08:13)
[2019-02-20] MEDS: ASPIRIN 81 MG CHEWABLE TABLET PO SCH ×2 (08:05→08:12)
[2019-02-20] MEDS ORDERED: TAMSULOSIN HCL 0.4 MG CAPSULE PO SCH (09:00)
[2019-02-20] MEDS ORDERED: DOCUSATE SODIUM 100 MG CAPSULE PO SCH (09:00)
[2019-02-20] MEDS ORDERED: FAMOTIDINE 10 MG/ML 2 ML VIAL IVP SCH (09:00)
[2019-02-20] MEDS: SODIUM CHLORIDE 0.45% 1,000 ML IV SCH (19:38)
[2019-02-20] MEDS: ATORVASTATIN CALCIUM 40 MG TABLET PO SCH (19:52)
[2019-02-20] MEDS: ARIPiprazole 10 MG TABLET PO SCH (19:53)
[2019-02-20] MEDS: CefTRIAXone 1 GM/DEXTROSE 50 ML IV SCH (22:33)
[2019-02-21 05:47] VITALS: BP 131/70
[2019-02-21] MEDS: SODIUM CHLORIDE 0.9% 1,000 ML IV SCH (05:49)
[2019-02-21] MEDS: LEVOTHYROXINE SODIUM 75 MCG TABLET PO SCH (06:28)
[2019-02-21 07:11] VITALS: BP 141/83
[2019-02-21 07:20] VITALS: BP 143/64
[2019-02-21] MEDS: DULoxetine HCL 30 MG CAPSULE PO SCH ×2 (09:12→21:02)
[2019-02-21] MEDS: TICAGRELOR 90 MG TABLET PO SCH ×2 (09:12→21:02)
[2019-02-21] MEDS: TAMSULOSIN HCL 0.4 MG CAPSULE PO SCH ×2 (09:12→21:03)
[2019-02-21] MEDS: PrednisoLONE ACETATE 1% 5 ML OPHTHALMIC SUSPENSION OS SCH ×4 (09:13→21:03)
[2019-02-21] MEDS: DOCUSATE SODIUM 100 MG CAPSULE PO SCH ×2 (09:13→21:02)
[2019-02-21] MEDS: METOPROLOL TARTRATE 50 MG TABLET PO SCH (09:13)
[2019-02-21] MEDS: ISOSORBIDE MONONITRATE 30 MG ER TABLET PO SCH (09:13)
[2019-02-21] MEDS: CIPROFLOXACIN HCL 0.3% 2.5 ML OPHTHALMIC SOLUTION OS SCH ×4 (09:13→21:03)
[2019-02-21] MEDS: SODIUM CHLORIDE 0.45% 1,000 ML IV SCH (09:13)
[2019-02-21] MEDS: FAMOTIDINE 20 MG TABLET PO SCH (09:13)
[2019-02-21] MEDS: ASPIRIN 81 MG CHEWABLE TABLET PO SCH (09:14)
[2019-02-21 11:20] VITALS: BP 106/66
[2019-02-21 12:54] LABS: BASOPHILS % (AUTO) 0.5 % (0.0-2.0); EOSINOPHILS % (AUTO) 8.9 % (1.0-6.0); HEMATOCRIT 43.5 % (41-53); HEMOGLOBIN 14.7 g/dL (13.5-17.5); LYMPHOCYTES % (AUTO) 14.8 % (22.0-44.0); MEAN CORPUSCULAR HEMOGLOBIN 32.6 pg (26.0-34.0); MEAN CORPUSCULAR HGB CONC 33.9 G/dL (31.0-37.0); MEAN CORPUSCULAR VOLUME 96 fL (80-100); MONOCYTES # (AUTO) 0.3 K/uL (0.1-1.0); MONOCYTES % (AUTO) 4.4 % (2.0-9.0); NEUTROPHILS % (AUTO) 71.4 % (40.0-70.0); PLATELET COUNT (AUTO) 155 K/uL (150-450); RED BLOOD CELL COUNT(AUTO) 4.52 MIL/uL (4.50-5.90); RED CELL DISTRIBUTION WIDTH 13.3 % (11.5-14.5)
[2019-02-21 13:04] LABS: CALCIUM, TOTAL 7.7 mg/dL (8.8-10.5); CREATININE 1.59 mg/dL (0.60-1.30); POTASSIUM 3.7 mmol/L (3.5-5.1)
[2019-02-21 13:10] LABS: HEMOGLOBIN A1C 5.3 % (4.5-6.2)
[2019-02-21 13:18] LABS: CHOL/HDL RATIO 4.1 (4.2-7.3); FREE T4 (FREE THYROXINE) 1.16 ng/dL (0.76-1.46); MAGNESIUM 1.7 mg/dL (1.80-2.40); PHOSPHORUS 2.1 mg/dL (2.5-4.9); THYROID STIMULATING HORMONE 3.81 uIU/mL (0.36-3.74)
[2019-02-21] MEDS: OxyCODONE HCL/ACETAMINOPHEN 5-325 MG TABLET PO PRN ×2 (13:35→21:03)
[2019-02-21] MEDS: BACLOFEN 10 MG TABLET PO SCH ×2 (15:38→21:03)
[2019-02-21 15:49] VITALS: BP_SYST 92; BP_DIAS 6; BP_DIAS 66
[2019-02-21 19:35] VITALS: BP 95/45
[2019-02-21] MEDS: ATORVASTATIN CALCIUM 40 MG TABLET PO SCH (21:02)
[2019-02-21] MEDS: ARIPiprazole 10 MG TABLET PO SCH (21:21)
[2019-02-21] MEDS: CefTRIAXone 1 GM/DEXTROSE 50 ML IV SCH (21:22)
[2019-02-22] MEDS: SODIUM CHLORIDE 0.45% 1,000 ML IV SCH (00:19)
[2019-02-22 04:00] VITALS: BP 120/71
[2019-02-22] MEDS: LEVOTHYROXINE SODIUM 75 MCG TABLET PO SCH (06:30)
[2019-02-22 07:10] VITALS: BP 115/67
[2019-02-22] MEDS: METOPROLOL TARTRATE 50 MG TABLET PO SCH (08:14)
[2019-02-22] MEDS: ISOSORBIDE MONONITRATE 30 MG ER TABLET PO SCH (08:14)
[2019-02-22] MEDS: DULoxetine HCL 30 MG CAPSULE PO SCH (08:16)
[2019-02-22] MEDS: TICAGRELOR 90 MG TABLET PO SCH (08:16)
[2019-02-22] MEDS: BACLOFEN 10 MG TABLET PO SCH ×2 (08:16→16:23)
[2019-02-22] MEDS: DOCUSATE SODIUM 100 MG CAPSULE PO SCH (08:16)
[2019-02-22] MEDS: PrednisoLONE ACETATE 1% 5 ML OPHTHALMIC SUSPENSION OS SCH ×3 (08:16→16:23)
[2019-02-22] MEDS: ASPIRIN 81 MG CHEWABLE TABLET PO SCH (08:16)
[2019-02-22] MEDS: FAMOTIDINE 20 MG TABLET PO SCH (08:16)
[2019-02-22] MEDS: TAMSULOSIN HCL 0.4 MG CAPSULE PO SCH (08:16)
[2019-02-22] MEDS: CIPROFLOXACIN HCL 0.3% 2.5 ML OPHTHALMIC SOLUTION OS SCH ×3 (08:17→16:23)
[2019-02-22] MEDS ORDERED: MAGNESIUM OXIDE 400 MG TABLET PO SCH (09:00)
[2019-02-22] MEDS ORDERED: IOHEXOL 180 MG/ML 20 ML VIAL ONE (09:23)
[2019-02-22] MEDS ORDERED: LIDOCAINE/PF 1% 30 ML VIAL ONE (09:36)
[2019-02-22] MEDS ORDERED: FentaNYL CITRATE-PF 100 MCG/2 ML VIAL ONE (11:08)
[2019-02-22] MEDS ORDERED: MIDAZOLAM HCL 2 MG/2 ML VIAL ONE (11:08)
[2019-02-22] MEDS ORDERED: MIDAZOLAM HCL 2 MG/2 ML VIAL IVP ONE (11:30)
[2019-02-22 12:15] VITALS: BP 112/67
[2019-02-22 16:08] VITALS: BP 116/66
[2019-02-22] MEDS ORDERED: MUPIROCIN CALCIUM 2% 22 GM OINTMENT NASAL SCH (21:00)
== END 2019-02-22 19:15 | disposition home or self-care (01) | DRG 689 ==
LOC: EMS 18:42 → 4E 22:51 → 6S 02-20 15:45 → 6N 02-20 15:50
PROVIDERS: ADMIT Internal Medicine; ATTEND Internal Medicine
DX: N39.0 Urinary tract infection, site not specified (principal); G93.41 Metabolic encephalopathy; N17.9 Acute kidney failure, unspecified; E44.0 Moderate protein-calorie malnutrition; N20.1 Calculus of ureter; Z68.1 Body mass index [BMI] 19.9 or less, adult; N18.9 Chronic kidney disease, unspecified; N13.9 Obstructive and reflux uropathy, unspecified; M79.7 Fibromyalgia; J44.9 Chronic obstructive pulmonary disease, unspecified; I25.10 Atherosclerotic heart disease of native coronary artery without angina pectoris; I12.9 Hypertensive chronic kidney disease with stage 1 through stage 4 chronic kidney disease, or unspecified chronic kidney disease; F20.9 Schizophrenia, unspecified; M19.90 Unspecified osteoarthritis, unspecified site; F31.9 Bipolar disorder, unspecified; B96.89 Other specified bacterial agents as the cause of diseases classified elsewhere; R00.1 Bradycardia, unspecified; N13.8 Other obstructive and reflux uropathy; R26.9 Unspecified abnormalities of gait and mobility; N40.1 Benign prostatic hyperplasia with lower urinary tract symptoms; G89.4 Chronic pain syndrome; E03.9 Hypothyroidism, unspecified; E78.5 Hyperlipidemia, unspecified; E83.42 Hypomagnesemia; Z79.899 Other long term (current) drug therapy; Z79.82 Long term (current) use of aspirin; Z79.02 Long term (current) use of antithrombotics/antiplatelets
CPT/HCPCS: 70450; 74176; 76000; 76770; 83036; 83605; 83735; 84100; 84439; 84443; 87040; 87081; 87086; 92610; 93306; 99244; G0378; J0696; J2250; J3010; J3490; Q9965

== ENCOUNTER 2019-06-16 11:30 | Inpatient (IN) | payer MEDICARE, MEDICAID ==
[~2019-06-16] VITALS: Ht 182.9 cm; Wt 78.0 kg
[~2019-06-16 11:30] MED LIST changes: +CHOL100018 PO; +FAMO20 PO; +LEVO25VI4 PO; +PERCT PO; +TAMS-13 PO; -TAMS0.4C32 PO; -VITAD1000 PO
[2019-06-16] MEDS ORDERED: DOCU-275 PO (11:57)
[2019-06-16] MEDS ORDERED: FLUC200T PO (11:57)
[2019-06-16] MEDS ORDERED: TERB15CR21 TP (11:57)
[2019-06-16] MEDS ORDERED: 0.9% SODIUM CHLORIDE 10 ML SYRINGE IVP PRN ×2 (12:30→16:45)
[2019-06-16] MEDS ORDERED: LACT1CAP90 PO (12:39)
[2019-06-16] MEDS ORDERED: CHOL100018 PO (12:39)
[2019-06-16] MEDS ORDERED: CRAN500T2 PO (12:39)
[2019-06-16] MEDS ORDERED: IOVERSOL 350 MG/ML 100 ML VIAL ONE (12:43)
[2019-06-16] MEDS ORDERED: SODIUM CHLORIDE 0.9% 500 ML IV ONE (12:45)
[2019-06-16] MEDS ORDERED: VANCOMYCIN HCL 1.5 GM in DEXTROSE 5%-WATER 250 ML IV ONE (12:45)
[2019-06-16] MEDS: PIPERACILLIN/TAZO 3.375 GM/D5W 50 ML IV SCH ×2 (13:47→18:45)
[2019-06-16 13:52] LABS: BASOPHILS % (AUTO) 0.6 % (0.0-2.0); EOSINOPHILS % (AUTO) 2.8 % (1.0-6.0); HEMATOCRIT 42.5 % (41-53); HEMOGLOBIN 14.5 g/dL (13.5-17.5); LYMPHOCYTES % (AUTO) 6.8 % (22.0-44.0); MEAN CORPUSCULAR HEMOGLOBIN 31.5 pg (26.0-34.0); MEAN CORPUSCULAR HGB CONC 34.1 G/dL (31.0-37.0); MEAN CORPUSCULAR VOLUME 92 fL (80-100); MONOCYTES # (AUTO) 0.9 K/uL (0.1-1.0); MONOCYTES % (AUTO) 6.4 % (2.0-9.0); NEUTROPHILS # (AUTO) 12.3 K/uL (1.8-7.7); NEUTROPHILS % (AUTO) 83.4 % (40.0-70.0); PLATELET COUNT (AUTO) 248 K/uL (150-450); RED CELL DISTRIBUTION WIDTH 12.7 % (11.5-14.5)
[2019-06-16 14:00] LABS: ANION GAP 9 mmol/L (8-16); CALCIUM, TOTAL 8.8 mg/dL (8.8-10.5); CARBON DIOXIDE 27 mmol/L (22-29); CHLORIDE 103 mmol/L (98-107); CREATININE 1.82 mg/dL (0.60-1.30); GLOMERULAR FILTR. RATE CALC 37 mL/min (>60); GLUCOSE,RANDOM 130 mg/dL (70-110); POTASSIUM 4.1 mmol/L (3.5-5.1); SODIUM SERUM 139 mmol/L (136-145); UREA NITROGEN, BLOOD 25 mg/dL (7-18)
[2019-06-16 14:09] LABS: LACTIC ACID 1.6 mmol/L (0.4-2.0)
[2019-06-16 14:15] LABS: ALANINE AMINOTRANSFERASE 89 U/L (12-78); ALKALINE PHOSPHATASE 118 U/L (46-116); ASPARTATE AMINOTRANSFERASE 56 U/L (15-37); BILIRUBIN,TOTAL 0.7 mg/dL (0.1-1.0); FREE T4 (FREE THYROXINE) 1.16 ng/dL (0.76-1.46); THYROID STIMULATING HORMONE 7.87 uIU/mL (0.36-3.74); TOTAL PROTEIN, SERUM 7.3 g/dL (6.4-8.2)
[2019-06-16 15:53] LABS: HCG,QUANTITATIVE 1 mIU/mL (0-6)
[2019-06-16] MEDS ORDERED: ONDANSETRON HCL 4 MG/2 ML VIAL IVP PRN (16:45)
[2019-06-16] MEDS ORDERED: SODIUM CHLORIDE 0.45% 1,000 ML IV ONE (16:45)
[2019-06-16] MEDS ORDERED: ACETAMINOPHEN 325 MG TABLET PO PRN ×2 (16:45)
[2019-06-16 18:32] LABS: AMPHET/METH SCREEN,URINE NEGATIVE (NEGATIVE); BARBITURATE SCREEN, URINE NEGATIVE (NEGATIVE); BENZODIAZEPINES SCREEN,URINE NEGATIVE (NEGATIVE); CANNABINOID SCREEN,URINE NEGATIVE (NEGATIVE); COCAINE SCREEN,URINE NEGATIVE (NEGATIVE); METHADONE SCREEN, URINE NEGATIVE (NEGATIVE); OPIATE SCREEN,URINE POSITIVE (NEGATIVE)
[2019-06-16 19:02] LABS: PHENCYCLIDINE SCREEN,URINE NEGATIVE (NEGATIVE)
[2019-06-16] MEDS: DOCUSATE SODIUM 100 MG CAPSULE PO SCH (20:09)
[2019-06-16] MEDS: HEPARIN SODIUM,PORCINE 5,000 UNITS/ML VIAL SQ SCH (20:09)
[2019-06-17 05:39] LABS: CALCIUM, TOTAL 7.8 mg/dL (8.8-10.5); CREATININE 1.69 mg/dL (0.60-1.30); POTASSIUM 3.4 mmol/L (3.5-5.1)
[2019-06-17] MEDS: PIPERACILLIN/TAZO 3.375 GM/D5W 50 ML IV SCH ×3 (06:38→19:05)
[2019-06-17] MEDS: LEVOTHYROXINE SODIUM 75 MCG TABLET PO SCH (07:12)
[2019-06-17] MEDS ORDERED: VANCOMYCIN HCL 1.25 GM in DEXTROSE 5%-WATER 250 ML IV SCH (08:00)
[2019-06-17] MEDS ORDERED: SODIUM CHLORIDE 0.45% 1,000 ML IV ONE (10:15)
[2019-06-17] MEDS ORDERED: POTASSIUM CHLORIDE 10 MEQ ER TABLET PO ONE (10:15)
[2019-06-17 10:20] VITALS: BP 113/69
[2019-06-17] MEDS: BISACODYL 10 MG RECTAL RECTAL SUPPOSITORY PR PRN ×2 (12:04→15:05)
[2019-06-17] MEDS: HEPARIN SODIUM,PORCINE 5,000 UNITS/ML VIAL SQ SCH ×2 (12:09→20:41)
[2019-06-17] MEDS: FAMOTIDINE 20 MG TABLET PO SCH (12:10)
[2019-06-17] MEDS: DOCUSATE SODIUM 100 MG CAPSULE PO SCH ×2 (12:10→20:41)
[2019-06-17] MEDS: TICAGRELOR 90 MG TABLET PO SCH ×3 (12:10→20:41)
[2019-06-17] MEDS: ASPIRIN 81 MG CHEWABLE TABLET PO SCH (12:29)
[2019-06-17 16:07] VITALS: BP 117/64
[2019-06-17 20:12] VITALS: BP 114/68
[2019-06-17] MEDS: ATORVASTATIN CALCIUM 20 MG TABLET PO SCH (20:41)
[2019-06-17] MEDS: OxyCODONE HCL/ACETAMINOPHEN 5-325 MG TABLET PO PRN (22:43)
[2019-06-18 00:20] VITALS: BP 117/62
[2019-06-18] MEDS: PIPERACILLIN/TAZO 3.375 GM/D5W 50 ML IV SCH ×4 (01:07→20:18)
[2019-06-18 04:02] VITALS: BP 120/72
[2019-06-18] MEDS: LEVOTHYROXINE SODIUM 75 MCG TABLET PO SCH (06:16)
[2019-06-18 07:26] LABS: BASOPHILS % (AUTO) 0.5 % (0.0-2.0); CALCIUM, TOTAL 7.7 mg/dL (8.8-10.5); CREATININE 1.72 mg/dL (0.60-1.30); EOSINOPHILS % (AUTO) 4.6 % (1.0-6.0); HEMATOCRIT 37.3 % (41-53); HEMOGLOBIN 13.1 g/dL (13.5-17.5); LYMPHOCYTES # (AUTO) 1.3 K/uL (1.0-4.8); LYMPHOCYTES % (AUTO) 14.2 % (22.0-44.0); MEAN CORPUSCULAR HEMOGLOBIN 31.9 pg (26.0-34.0); MEAN CORPUSCULAR HGB CONC 35.1 G/dL (31.0-37.0); MEAN CORPUSCULAR VOLUME 91 fL (80-100); MONOCYTES # (AUTO) 0.6 K/uL (0.1-1.0); MONOCYTES % (AUTO) 6.3 % (2.0-9.0); NEUTROPHILS % (AUTO) 74.4 % (40.0-70.0); PLATELET COUNT (AUTO) 192 K/uL (150-450); POTASSIUM 3.4 mmol/L (3.5-5.1); RED CELL DISTRIBUTION WIDTH 12.8 % (11.5-14.5); VANCOMYCIN,RANDOM 11.5 mcg/mL (25.0-50.0)
[2019-06-18 07:57] VITALS: BP 143/75
[2019-06-18] MEDS ORDERED: VANCOMYCIN HCL 750 MG in DEXTROSE 5%-WATER 250 ML IV ONE (08:00)
[2019-06-18] MEDS: TICAGRELOR 90 MG TABLET PO SCH ×2 (09:00→20:19)
[2019-06-18] MEDS: HEPARIN SODIUM,PORCINE 5,000 UNITS/ML VIAL SQ SCH ×2 (09:00→20:19)
[2019-06-18] MEDS: DOCUSATE SODIUM 100 MG CAPSULE PO SCH ×2 (09:14→20:19)
[2019-06-18] MEDS: ASPIRIN 81 MG CHEWABLE TABLET PO SCH (09:14)
[2019-06-18] MEDS: FAMOTIDINE 20 MG TABLET PO SCH (09:14)
[2019-06-18] MEDS: OxyCODONE HCL/ACETAMINOPHEN 5-325 MG TABLET PO PRN (14:40)
[2019-06-18] MEDS: VANCOMYCIN HCL 750 MG in DEXTROSE 5%-WATER 250 ML IV SCH (18:27)
[2019-06-18 19:27] VITALS: BP 128/71
[2019-06-18] MEDS ORDERED: POTASSIUM CHLORIDE 10 MEQ ER TABLET PO ONE (19:30)
[2019-06-18] MEDS: ATORVASTATIN CALCIUM 20 MG TABLET PO SCH (20:19)
[2019-06-19] VITALS (7 sets, daily range): BP systolic 116–144; BP diastolic 66–81
[2019-06-19] MEDS: PIPERACILLIN/TAZO 3.375 GM/D5W 50 ML IV SCH ×4 (02:18→18:00)
[2019-06-19] MEDS: VANCOMYCIN HCL 750 MG in DEXTROSE 5%-WATER 250 ML IV SCH ×2 (06:09→18:00)
[2019-06-19] MEDS: LEVOTHYROXINE SODIUM 75 MCG TABLET PO SCH (06:09)
[2019-06-19 08:08] LABS: APPEARANCE,URINE CLOUDY (CLEAR); BILIRUBIN,URINE NEGATIVE (NEGATIVE); GLUCOSE, URINE (UA) NEGATIVE (NEGATIVE); KETONES,URINE NEGATIVE (NEGATIVE); LEUKOCYTE ESTERASE ,URINE MODERATE (NEGATIVE); NITRATE,URINE POSITIVE (NEGATIVE); OCCULT BLOOD,URINE LARGE (NEGATIVE); PROTEIN,URINE POS 1+ (NEGATIVE)
[2019-06-19 08:39] LABS: AMORPHOUS SEDIMENT,UR Moderate /LPF (None Seen); BACTERIA,URINE None Seen /HPF (None Seen); SQUAMOUS EPITHELIAL CELL,UR Few /LPF (None Seen); URIC ACID CRYSTALS,URINE Moderate /LPF (None Seen)
[2019-06-19] MEDS: HEPARIN SODIUM,PORCINE 5,000 UNITS/ML VIAL SQ SCH ×2 (08:52→21:38)
[2019-06-19] MEDS: DOCUSATE SODIUM 100 MG CAPSULE PO SCH ×2 (08:52→21:39)
[2019-06-19] MEDS: TICAGRELOR 90 MG TABLET PO SCH ×2 (08:52→21:38)
[2019-06-19] MEDS: FAMOTIDINE 20 MG TABLET PO SCH (08:52)
[2019-06-19] MEDS: ASPIRIN 81 MG CHEWABLE TABLET PO SCH (08:52)
[2019-06-19 08:53] LABS: CALCIUM, TOTAL 8.2 mg/dL (8.8-10.5); CREATININE 1.86 mg/dL (0.60-1.30); HEMOGLOBIN A1C 5.3 % (4.5-6.2); POTASSIUM 3.8 mmol/L (3.5-5.1)
[2019-06-19] MEDS ORDERED: SODIUM CHLORIDE 0.9% 1,000 ML ONE (09:28)
[2019-06-19 09:33] LABS: PROTHROMBIN TIME 10.5 SEC (9.4-11.6)
[2019-06-19] MEDS ORDERED: BUPIVACAINE/EPI/PF 0.5% 30 ML VIAL ONE (09:53)
[2019-06-19] MEDS ORDERED: HYDROGEN PEROXIDE 473 ML SOLUTION ONE (09:53)
[2019-06-19] MEDS ORDERED: SODIUM CHLORIDE 0.9% 1,000 ML IV ONE (10:00)
[2019-06-19] MEDS ORDERED: FentaNYL CITRATE-PF 100 MCG/2 ML VIAL IVP PRN (14:15)
[2019-06-19] MEDS: OxyCODONE HCL/ACETAMINOPHEN 5-325 MG TABLET PO PRN (15:10)
[2019-06-19] MEDS: OXYGEN THERAPY IH SCH (20:00)
[2019-06-19] MEDS: ATORVASTATIN CALCIUM 20 MG TABLET PO SCH (21:38)
[2019-06-20 05:00] VITALS: BP 129/70
[2019-06-20] MEDS: OxyCODONE HCL/ACETAMINOPHEN 5-325 MG TABLET PO PRN ×2 (06:01→22:20)
[2019-06-20] MEDS: VANCOMYCIN HCL 750 MG in DEXTROSE 5%-WATER 250 ML IV SCH ×2 (06:02→19:01)
[2019-06-20] MEDS: LEVOTHYROXINE SODIUM 75 MCG TABLET PO SCH (06:02)
[2019-06-20 07:54] LABS: BASOPHILS % (AUTO) 0.9 % (0.0-2.0); EOSINOPHILS % (AUTO) 4.5 % (1.0-6.0); HEMATOCRIT 37.2 % (41-53); LYMPHOCYTES # (AUTO) 1.3 K/uL (1.0-4.8); LYMPHOCYTES % (AUTO) 12.6 % (22.0-44.0); MEAN CORPUSCULAR HEMOGLOBIN 31.6 pg (26.0-34.0); MEAN CORPUSCULAR VOLUME 91 fL (80-100); MONOCYTES # (AUTO) 0.5 K/uL (0.1-1.0); MONOCYTES % (AUTO) 5.1 % (2.0-9.0); NEUTROPHILS % (AUTO) 76.9 % (40.0-70.0); PLATELET COUNT (AUTO) 219 K/uL (150-450); RED BLOOD CELL COUNT(AUTO) 4.11 MIL/uL (4.50-5.90); RED CELL DISTRIBUTION WIDTH 12.6 % (11.5-14.5)
[2019-06-20 08:18] VITALS: BP 115/69
[2019-06-20 08:33] LABS: ALBUMIN 2.6 g/dL (3.4-5.0); BILIRUBIN,TOTAL 0.5 mg/dL (0.1-1.0); CALCIUM, TOTAL 7.9 mg/dL (8.8-10.5); CREATININE 1.94 mg/dL (0.60-1.30); POTASSIUM 3.6 mmol/L (3.5-5.1); TOTAL PROTEIN, SERUM 6.3 g/dL (6.4-8.2); VANCOMYCIN,RANDOM 34.4 mcg/mL (25.0-50.0)
[2019-06-20] MEDS: DOCUSATE SODIUM 100 MG CAPSULE PO SCH ×3 (08:53→21:00)
[2019-06-20] MEDS: FAMOTIDINE 20 MG TABLET PO SCH (08:53)
[2019-06-20] MEDS: ASPIRIN 81 MG CHEWABLE TABLET PO SCH (08:55)
[2019-06-20] MEDS: HEPARIN SODIUM,PORCINE 5,000 UNITS/ML VIAL SQ SCH ×3 (08:56→22:19)
[2019-06-20] MEDS: TICAGRELOR 90 MG TABLET PO SCH ×3 (08:56→22:20)
[2019-06-20] MEDS: OXYGEN THERAPY IH SCH ×2 (08:58→20:00)
[2019-06-20 11:30] VITALS: BP 111/78
[2019-06-20] MEDS ORDERED: FentaNYL CITRATE-PF 100 MCG/2 ML VIAL IVP ONE (12:00)
[2019-06-20 15:52] VITALS: BP 118/70
[2019-06-20 19:42] VITALS: BP 103/65
[2019-06-20] MEDS: ATORVASTATIN CALCIUM 20 MG TABLET PO SCH ×2 (21:00→22:20)
[2019-06-20 23:50] VITALS: BP 118/63
[2019-06-21] MEDS: ATORVASTATIN CALCIUM 20 MG TABLET PO SCH (00:39)
[2019-06-21 05:17] VITALS: BP 115/71
[2019-06-21] MEDS: VANCOMYCIN HCL 750 MG in DEXTROSE 5%-WATER 250 ML IV SCH ×2 (06:04→19:37)
[2019-06-21 06:35] LABS: BASOPHILS % (AUTO) 0.9 % (0.0-2.0); EOSINOPHILS % (AUTO) 5.7 % (1.0-6.0); HEMATOCRIT 36.6 % (41-53); HEMOGLOBIN 12.8 g/dL (13.5-17.5); LYMPHOCYTES # (AUTO) 1.4 K/uL (1.0-4.8); LYMPHOCYTES % (AUTO) 15.2 % (22.0-44.0); MEAN CORPUSCULAR HEMOGLOBIN 31.7 pg (26.0-34.0); MEAN CORPUSCULAR VOLUME 91 fL (80-100); MONOCYTES # (AUTO) 0.5 K/uL (0.1-1.0); MONOCYTES % (AUTO) 5.7 % (2.0-9.0); NEUTROPHILS # (AUTO) 6.6 K/uL (1.8-7.7); NEUTROPHILS % (AUTO) 72.5 % (40.0-70.0); PLATELET COUNT (AUTO) 197 K/uL (150-450); RED BLOOD CELL COUNT(AUTO) 4.03 MIL/uL (4.50-5.90); RED CELL DISTRIBUTION WIDTH 12.9 % (11.5-14.5)
[2019-06-21 06:48] LABS: ALBUMIN 2.6 g/dL (3.4-5.0); BILIRUBIN,TOTAL 0.4 mg/dL (0.1-1.0); CREATININE 1.49 mg/dL (0.60-1.30); POTASSIUM 3.7 mmol/L (3.5-5.1); TOTAL PROTEIN, SERUM 6.2 g/dL (6.4-8.2); VANCOMYCIN,RANDOM 20.3 mcg/mL (25.0-50.0)
[2019-06-21] MEDS: LEVOTHYROXINE SODIUM 100 MCG TABLET PO SCH (08:16)
[2019-06-21] MEDS: DOCUSATE SODIUM 100 MG CAPSULE PO SCH ×2 (08:17→23:19)
[2019-06-21] MEDS: FAMOTIDINE 20 MG TABLET PO SCH (08:17)
[2019-06-21] MEDS: OXYGEN THERAPY IH SCH ×2 (08:17→23:19)
[2019-06-21] MEDS: ASPIRIN 81 MG CHEWABLE TABLET PO SCH (08:17)
[2019-06-21 08:19] VITALS: BP 122/76
[2019-06-21] MEDS: OxyCODONE HCL/ACETAMINOPHEN 5-325 MG TABLET PO PRN ×2 (08:35→21:05)
[2019-06-21] MEDS ORDERED: SODIUM CL IRRIG SOLN BOTTLE 250 ML IRRIG ONE (10:46)
[2019-06-21 11:29] VITALS: BP 116/76
[2019-06-21] MEDS: CefTAZidime PENTAHYDRATE 2 GM in DEXTROSE 5%-WATER 50 ML IV SCH (15:11)
[2019-06-21 16:38] VITALS: BP 118/68
[2019-06-21 19:49] VITALS: BP 120/65
[2019-06-21] MEDS: HEPARIN SODIUM,PORCINE 5,000 UNITS/ML VIAL SQ SCH (23:18)
[2019-06-21] MEDS: TICAGRELOR 90 MG TABLET PO SCH (23:18)
[2019-06-21 23:30] VITALS: BP 125/64
[2019-06-22] MEDS: CefTAZidime PENTAHYDRATE 2 GM in DEXTROSE 5%-WATER 50 ML IV SCH (01:08)
[2019-06-22 05:09] VITALS: BP 131/73
[2019-06-22 05:50] LABS: HEMATOCRIT 35.2 % (41-53); HEMOGLOBIN 12.2 g/dL (13.5-17.5); MEAN CORPUSCULAR HEMOGLOBIN 31.5 pg (26.0-34.0); MEAN CORPUSCULAR HGB CONC 34.5 G/dL (31.0-37.0); MEAN CORPUSCULAR VOLUME 91 fL (80-100); PLATELET COUNT (AUTO) 212 K/uL (150-450); RED BLOOD CELL COUNT(AUTO) 3.86 MIL/uL (4.50-5.90); RED CELL DISTRIBUTION WIDTH 12.6 % (11.5-14.5)
[2019-06-22] MEDS: LEVOTHYROXINE SODIUM 100 MCG TABLET PO SCH (05:51)
[2019-06-22 06:06] LABS: ALBUMIN 2.7 g/dL (3.4-5.0); BILIRUBIN,TOTAL 0.3 mg/dL (0.1-1.0); CALCIUM, TOTAL 8.3 mg/dL (8.8-10.5); CREATININE 1.58 mg/dL (0.60-1.30); POTASSIUM 3.9 mmol/L (3.5-5.1); TOTAL PROTEIN, SERUM 6.3 g/dL (6.4-8.2)
[2019-06-22] MEDS: VANCOMYCIN HCL 750 MG in DEXTROSE 5%-WATER 250 ML IV SCH ×2 (06:22→19:03)
[2019-06-22 08:12] VITALS: BP 119/69
[2019-06-22 08:16] LABS: BAND NEUTROPHILS % (MANUAL) 1 % (0-5); LYMPHOCYTES % (MANUAL) 12 % (22-44); METAMYELOCYTES % 1 % (0-0); MONOCYTES % (MANUAL) 3 % (2-9); SEGMENTED NEUTROPHILS % 83 % (40-70)
[2019-06-22] MEDS: FAMOTIDINE 20 MG TABLET PO SCH (09:53)
[2019-06-22] MEDS: ASPIRIN 81 MG CHEWABLE TABLET PO SCH (09:53)
[2019-06-22] MEDS: TICAGRELOR 90 MG TABLET PO SCH ×2 (09:53→20:45)
[2019-06-22] MEDS: DOCUSATE SODIUM 100 MG CAPSULE PO SCH ×2 (09:53→20:46)
[2019-06-22] MEDS: OXYGEN THERAPY IH SCH ×2 (09:53→20:48)
[2019-06-22] MEDS: HEPARIN SODIUM,PORCINE 5,000 UNITS/ML VIAL SQ SCH ×2 (09:54→20:52)
[2019-06-22 12:18] VITALS: BP 117/73
[2019-06-22] MEDS ORDERED: SODIUM CHLORIDE 0.9% 250 ML IV ONE (12:59)
[2019-06-22] MEDS: AZTREONAM 1 GM in DEXTROSE 5%-WATER 50 ML IV SCH ×2 (13:02→20:45)
[2019-06-22] MEDS: OxyCODONE HCL/ACETAMINOPHEN 5-325 MG TABLET PO PRN (14:01)
[2019-06-22 15:14] VITALS: BP 101/70
[2019-06-22 20:13] VITALS: BP 103/50
[2019-06-22] MEDS: ATORVASTATIN CALCIUM 20 MG TABLET PO SCH (20:46)
[2019-06-23 00:30] VITALS: BP 102/55
[2019-06-23 05:17] VITALS: BP 100/51
[2019-06-23] MEDS: LEVOTHYROXINE SODIUM 100 MCG TABLET PO SCH (05:58)
[2019-06-23] MEDS: AZTREONAM 1 GM in DEXTROSE 5%-WATER 50 ML IV SCH ×2 (05:58→11:23)
[2019-06-23] MEDS: VANCOMYCIN HCL 750 MG in DEXTROSE 5%-WATER 250 ML IV SCH ×2 (05:59→16:37)
[2019-06-23 07:15] LABS: CALCIUM, TOTAL 8.1 mg/dL (8.8-10.5); CREATININE 1.69 mg/dL (0.60-1.30)
[2019-06-23] MEDS: OXYGEN THERAPY IH SCH (08:00)
[2019-06-23] MEDS ORDERED: SODIUM CHLORIDE 0.9% 250 ML IV ONE (08:43)
[2019-06-23] MEDS: FAMOTIDINE 20 MG TABLET PO SCH (09:00)
[2019-06-23] MEDS: DOCUSATE SODIUM 100 MG CAPSULE PO SCH (09:00)
[2019-06-23] MEDS: TICAGRELOR 90 MG TABLET PO SCH (09:00)
[2019-06-23] MEDS: ASPIRIN 81 MG CHEWABLE TABLET PO SCH (09:00)
[2019-06-23] MEDS: HEPARIN SODIUM,PORCINE 5,000 UNITS/ML VIAL SQ SCH (09:00)
[2019-06-23 11:48] VITALS: BP 121/61
[2019-06-23] MEDS: OxyCODONE HCL/ACETAMINOPHEN 5-325 MG TABLET PO PRN (13:49)
[2019-06-23] MEDS ORDERED: SODIUM CL IRRIG SOLN BOTTLE 250 ML IRRIG ONE (14:46)
[2019-06-23 15:32] VITALS: BP 133/70
[2019-06-23 19:44] VITALS: BP 135/64
== END 2019-06-23 20:10 | DRG 853 ==
LOC: EMS 11:36 → 5S 06-17 08:11
PROVIDERS: ADMIT Internal Medicine; ATTEND Internal Medicine
PROC: 0JB70ZZ Excision of Back Subcutaneous Tissue and Fascia, Open Approach (ICD-10-PCS; principal; 2019-06-19 12:00)
DX: A41.02 Sepsis due to Methicillin resistant Staphylococcus aureus (principal); E43 Unspecified severe protein-calorie malnutrition; J96.91 Respiratory failure, unspecified with hypoxia; L02.212 Cutaneous abscess of back [any part, except buttock and flank]; N39.0 Urinary tract infection, site not specified; N13.8 Other obstructive and reflux uropathy; I96 Gangrene, not elsewhere classified; N17.9 Acute kidney failure, unspecified; N18.9 Chronic kidney disease, unspecified; J44.9 Chronic obstructive pulmonary disease, unspecified; F03.90 Unspecified dementia, unspecified severity, without behavioral disturbance, psychotic disturbance, mood disturbance, and anxiety; M79.7 Fibromyalgia; K21.9 Gastro-esophageal reflux disease without esophagitis; I25.10 Atherosclerotic heart disease of native coronary artery without angina pectoris; E03.9 Hypothyroidism, unspecified; F32.9 Major depressive disorder, single episode, unspecified; I45.10 Unspecified right bundle-branch block; I44.1 Atrioventricular block, second degree; G89.4 Chronic pain syndrome; F20.9 Schizophrenia, unspecified; G47.00 Insomnia, unspecified; R62.7 Adult failure to thrive; Z88.5 Allergy status to narcotic agent; Z88.8 Allergy status to other drugs, medicaments and biological substances; Z68.23 Body mass index [BMI] 23.0-23.9, adult
CPT/HCPCS: 71250; 72192; 74150; 83036; 83605; 83735; 84439; 84443; 87040; 87070; 87086; 87101; 87205; 88304; 93005; 93306; 99291; G0480; J0713; J1644; J2543; J3010; J3370; J3490; J7030; J7040; J7050; J7060